=== PATIENT | female | born 1945 | race Two or more races ===

== ENCOUNTER 2018-03-10 10:51 | Outpatient (CLI) | payer OTHER | END 2018-03-10 10:52 | disposition home or self-care (01) | LOC: SONOGRAMA 10:51 | DX: E04.1 Nontoxic single thyroid nodule (principal) ==

== ENCOUNTER 2020-03-24 11:46 | Emergency (ER) | payer OTHER ==
[~2020-03-24] VITALS: Ht 160 cm; Wt 83.9 kg
[2020-03-24] MEDS ORDERED: NORVASC5 MG PO (12:08)
[2020-03-24] MEDS ORDERED: METFORMIN HCL500 M3 PO (12:08)
[2020-03-24] MEDS ORDERED: ATORVASTATIN CA40 MG PO (12:09)
== END 2020-03-24 14:58 | disposition home or self-care (01) ==
LOC: ER 11:46
DX: S40.011A Contusion of right shoulder, initial encounter (principal); S50.01XA Contusion of right elbow, initial encounter; S60.211A Contusion of right wrist, initial encounter; W18.2XXA Fall in (into) shower or empty bathtub, initial encounter; Y93.89 Activity, other specified; Y92.012 Bathroom of single-family (private) house as the place of occurrence of the external cause; Y99.8 Other external cause status

== ENCOUNTER 2021-08-18 11:59 | Emergency (ER) | payer OTHER ==
[~2021-08-18] VITALS: Ht 157.5 cm; Wt 83.9 kg
[~2021-08-18 11:59] MED LIST: ATORVASTATIN CA40 MG PO; METFORMIN HCL500 M3 PO; NORVASC5 MG PO
[2021-08-18] MEDS ORDERED: SERTRALINE20 MG/1 ML (12:38)
[2021-08-18] MEDS ORDERED: BUSPIRONE HCL7.5 MG (12:39)
== END 2021-08-18 17:38 | disposition home or self-care (01) ==
LOC: ER 11:59
DX: S40.012A Contusion of left shoulder, initial encounter (principal); S70.02XA Contusion of left hip, initial encounter; S40.022A Contusion of left upper arm, initial encounter; W18.30XA Fall on same level, unspecified, initial encounter; Y93.9 Activity, unspecified; Y92.018 Other place in single-family (private) house as the place of occurrence of the external cause; E11.9 Type 2 diabetes mellitus without complications; Z79.84 Long term (current) use of oral hypoglycemic drugs; I10 Essential (primary) hypertension

== ENCOUNTER 2021-10-29 13:03 | Emergency (ER) | payer OTHER ==
[~2021-10-29] VITALS: Ht 157.5 cm; Wt 82.1 kg
[~2021-10-29 13:03] MED LIST changes: +BUSPIRONE HCL7.5 MG; +SERTRALINE20 MG/1 ML
[2021-10-29] MEDS ORDERED: BUPROPION HCL150 M1 PO ×2 (13:33→13:34)
[2021-10-29] MEDS ORDERED: LEXAPRO20 MG PO (13:33)
[2021-10-29] MEDS ORDERED: VISTARIL25 MG PO (15:09)
== END 2021-10-29 15:33 | disposition home or self-care (01) ==
LOC: ER 13:03
DX: N39.0 Urinary tract infection, site not specified (principal); F41.9 Anxiety disorder, unspecified; E11.9 Type 2 diabetes mellitus without complications; Z79.84 Long term (current) use of oral hypoglycemic drugs; I10 Essential (primary) hypertension; Z86.73 Personal history of transient ischemic attack (TIA), and cerebral infarction without residual deficits; E78.00 Pure hypercholesterolemia, unspecified; E03.9 Hypothyroidism, unspecified; F41.0 Panic disorder [episodic paroxysmal anxiety]; Z20.822 Contact with and (suspected) exposure to COVID-19

== ENCOUNTER → 2021-11-03 | Emergency (ER) | payer OTHER ==
[~2021-11-03] VITALS: Ht 157.5 cm; Wt 85.7 kg
[~2021-11-03] MED LIST changes: +BUPROPION HCL150 M1 PO; +LEXAPRO20 MG PO; +VISTARIL25 MG PO
== END | disposition left against medical advice (07) ==
LOC: ER 11:11
DX: Z53.21 Procedure and treatment not carried out due to patient leaving prior to being seen by health care provider (principal)

== ENCOUNTER → 2022-01-30 | Emergency (ER) | payer OTHER ==
[~2022-01-30] VITALS: Ht 157.5 cm; Wt 85.7 kg
== END | disposition left against medical advice (07) ==
LOC: ER 15:59
DX: T14.91XA Suicide attempt, initial encounter (principal); I10 Essential (primary) hypertension; E03.9 Hypothyroidism, unspecified; E11.9 Type 2 diabetes mellitus without complications; Z20.828 Contact with and (suspected) exposure to other viral communicable diseases; K44.9 Diaphragmatic hernia without obstruction or gangrene

== ENCOUNTER 2022-04-05 17:40 | Emergency (ER) | payer OTHER ==
[~2022-04-05] VITALS: Ht 160 cm; Wt 77.1 kg
[2022-04-05] MEDS ORDERED: ZOLOFT25 MG (17:50)
== END 2022-04-06 06:11 | disposition home or self-care (01) ==
LOC: ER 17:40
DX: I62.03 Nontraumatic chronic subdural hemorrhage (principal)

== ENCOUNTER → 2022-06-02 | Emergency (ER) | payer OTHER ==
[~2022-06-02] VITALS: Ht 157.5 cm; Wt 90.3 kg
[~2022-06-02] MED LIST changes: +LEVOTHYROXINE125 MCG PO; +ZOLOFT25 MG
== END | disposition left against medical advice (07) ==
LOC: ER 17:58
DX: Z53.21 Procedure and treatment not carried out due to patient leaving prior to being seen by health care provider (principal)

== ENCOUNTER 2022-06-04 14:44 | Emergency (ER) | payer OTHER ==
[~2022-06-04] VITALS: Ht 157.5 cm; Wt 85.7 kg
== END 2022-06-05 05:37 | disposition designated cancer center or children's hospital (05) ==
LOC: ER 14:44
DX: I62.01 Nontraumatic acute subdural hemorrhage (principal); E11.9 Type 2 diabetes mellitus without complications; Z79.84 Long term (current) use of oral hypoglycemic drugs; I10 Essential (primary) hypertension

== ENCOUNTER 2022-06-07 16:45 | Emergency (ER) | payer OTHER ==
[~2022-06-07] VITALS: Ht 160 cm; Wt 86.6 kg
== END 2022-06-07 21:29 | disposition home or self-care (01) ==
LOC: ER 16:45
DX: R55 Syncope and collapse (principal); E03.9 Hypothyroidism, unspecified; I10 Essential (primary) hypertension; E11.9 Type 2 diabetes mellitus without complications; Z79.84 Long term (current) use of oral hypoglycemic drugs; Z86.73 Personal history of transient ischemic attack (TIA), and cerebral infarction without residual deficits

== ENCOUNTER 2022-08-18 18:25 | Emergency (ER) | payer OTHER ==
[~2022-08-18] VITALS: Ht 162.6 cm; Wt 83.9 kg
== END 2022-08-18 19:20 | disposition home or self-care (01) ==
LOC: ER 18:25
DX: I10 Essential (primary) hypertension (principal); F32.89 Other specified depressive episodes; E11.9 Type 2 diabetes mellitus without complications; Z79.84 Long term (current) use of oral hypoglycemic drugs

== ENCOUNTER 2023-02-04 18:12 | Emergency (ER) | payer OTHER ==
[~2023-02-04] VITALS: Ht 157.5 cm; Wt 95.3 kg
== END 2023-02-04 19:32 | disposition home or self-care (01) ==
LOC: ER 18:12
DX: G43.909 Migraine, unspecified, not intractable, without status migrainosus (principal)
CPT/HCPCS: 96372; 99284; J1885; J2765